=== PATIENT | male | born 1995 | race Two or more races ===

== ENCOUNTER 2017-05-28 11:54 | Emergency (ER) | payer SELFPAY ==
[2017-05-28] MEDS ORDERED: DIPH,PERTUSS(ACELL),TET VAC/PF 0.5 ML IM-VACC ONE (12:51)
== END 2017-05-28 12:07 | disposition left against medical advice (07) ==
LOC: ED 12:00
DX: M79.644 Pain in right finger(s) (principal); Z53.21 Procedure and treatment not carried out due to patient leaving prior to being seen by health care provider